=== PATIENT | female | born 1960 | race Caucasian/White ===

== ENCOUNTER → 2018-11-11 | Outpatient (CLI) | payer MEDICARE, OTHER ==
[~2018-11-11] MED LIST: AMIT50 PO; AMOX500; AMYTRIPTILINE; Amitriptyline H50 MG PO; BELPHEER PO; CARI350; CARI350 PO; CHLO100 PO; DIPATR PO; DIPH25; DULO30; DULO60 PO; GABA300 PO; HYDACE5 PO; IBUP200 PO; LEVSOD100; LEVSOD100 PO; LEVSOD125; LEVSOD125 PO; LOPE2C PO; LOVA40 PO; Lisinopril2.5 MG PO; MELO7.5 PO; METCAR750 PO; METF850 PO; METR500 PO; MOTRIN; NAPR500ERA; OXYACE5T PO; PROACE100; RESTORIL; SOMA; TEMA30; TEMA30 PO; TRAM50 PO
[2018-11-13 14:09] LABS: HPV 16 Negative (Negative); HPV 18 Negative (Negative); HPV OTHER HR TYPES Negative (Negative)
== END | disposition home or self-care (01) ==
LOC: LAB SHORT 13:07 → LAB 13:07
PROVIDERS: Nurse Practitioner Family
DX: Z12.4 Encounter for screening for malignant neoplasm of cervix (principal); Z11.51 Encounter for screening for human papillomavirus (HPV)
CPT/HCPCS: 87624; G0123

== ENCOUNTER → 2019-07-31 | Outpatient (CLI) | payer MEDICARE, OTHER ==
[2019-08-01 16:45] LABS: Adenovirus F 40/41 Not Detected (NOT DETECT); Astrovirus Not Detected (NOT DETECT); Campylobacter Sp Not Detected (NOT DETECT); Cryptosporidium Not Detected (NOT DETECT); Cyclospora Cayetanensis Not Detected (NOT DETECT); E. Coli O157 Not Detected (NOT DETECT); Entamoeba Histolytica Not Detected (NOT DETECT); Enteroaggregative E. coli-EAEC Not Detected (NOT DETECT); Enteropathogenic E. coli-EPEC Not Detected (NOT DETECT); Enterotoxigenic E. coli-ETEC Not Detected (NOT DETECT); Giardia Lamblia Not Detected (NOT DETECT); Norovirus GI/GII Not Detected (NOT DETECT); Plesiomonas Shigelloides Not Detected (NOT DETECT); Rotavirus A Not Detected (NOT DETECT); Salmonella Sp Not Detected (NOT DETECT); Sapovirus Not Detected (NOT DETECT); Shiga Toxin-prod E. coli-STEC Not Detected (NOT DETECT); Shigella/Enteroin E. coli-EIEC Not Detected (NOT DETECT); Vibrio Cholerae Not Detected (NOT DETECT); Vibrio Sp Not Detected (NOT DETECT); Yersinia Enterocolitica Not Detected (NOT DETECT)
== END | disposition home or self-care (01) ==
LOC: LAB 20:00 → LAB SHORT 20:00 → LAB FUT 07-21 15:25
PROVIDERS: Internal Medicine Gastroenterology
DX: R19.7 Diarrhea, unspecified (principal); R10.13 Epigastric pain
CPT/HCPCS: 0097U

== ENCOUNTER → 2020-06-08 | Outpatient (CLI) | payer MEDICARE, OTHER ==
[2020-06-08 18:58] LABS: Adenovirus F 40/41 Not Detected (NOT DETECT); Astrovirus Not Detected (NOT DETECT); Campylobacter Sp Not Detected (NOT DETECT); Cryptosporidium Not Detected (NOT DETECT); Cyclospora Cayetanensis Not Detected (NOT DETECT); E. Coli O157 Not Detected (NOT DETECT); Entamoeba Histolytica Not Detected (NOT DETECT); Enteroaggregative E. coli-EAEC Not Detected (NOT DETECT); Enteropathogenic E. coli-EPEC Not Detected (NOT DETECT); Enterotoxigenic E. coli-ETEC Not Detected (NOT DETECT); Giardia Lamblia Not Detected (NOT DETECT); Norovirus GI/GII Not Detected (NOT DETECT); Plesiomonas Shigelloides Not Detected (NOT DETECT); Rotavirus A Not Detected (NOT DETECT); Salmonella Sp Not Detected (NOT DETECT); Sapovirus Not Detected (NOT DETECT); Shiga Toxin-prod E. coli-STEC Not Detected (NOT DETECT); Shigella/Enteroin E. coli-EIEC Not Detected (NOT DETECT); Vibrio Cholerae Not Detected (NOT DETECT); Vibrio Sp Not Detected (NOT DETECT); Yersinia Enterocolitica Not Detected (NOT DETECT)
== END | disposition home or self-care (01) ==
LOC: LAB SHORT 11:00 → LAB 11:00
PROVIDERS: Internal Medicine Gastroenterology
DX: R19.7 Diarrhea, unspecified (principal)
CPT/HCPCS: 0097U

== ENCOUNTER → 2021-03-27 | Outpatient (CLI) | payer MEDICARE, OTHER ==
[2021-03-27 16:30] LABS: BASOPHILS ABSOLUTE AUTO 0.06 K/mm3 (0.00-0.23); BASOPHILS PERCENT AUTO 1 % (0-2); EOSINOPHILS ABSOLUTE AUTO 0.45 K/mm3 (0.00-0.68); EOSINOPHILS PERCENT AUTO 6 % (0-6); Hematocrit 32.8 % (33.0-51.0); Hemoglobin 10.8 g/dL (11.5-16.0); IMMATURE GRAN ABSOLUTE AUTO 0.04 K/mm3 (0.00-0.10); IMMATURE GRAN PERCENT AUTO 1 % (0-1); LYMPHOCYTES ABSOLUTE AUTO 1.72 K/mm3 (0.84-5.20); LYMPHOCYTES PERCENT AUTO 22 % (21-46); MONOCYTES PERCENT AUTO 8 % (4-13); Mean Corpuscular HGB Conc 32.9 g/dL (31.5-36.5); Mean Corpuscular Volume 88 fL (80-100); Mean Platelet Volume 9.5 fL (9.1-12.4); NEUTROPHILS ABSOLUTE AUTO 5.11 K/mm3 (1.96-9.15); NEUTROPHILS PERCENT AUTO 64 % (41-73); Platelet Count 335 K/mm3 (150-400); RDW Coefficient Variation 14.1 % (11.7-14.2); RDW Standard Deviation 45.4 fL (35.1-46.3); Red Blood Cell Count 3.72 M/mm3 (3.80-5.20); White Blood Cell Count 7.98 K/mm3 (4.00-11.30)
[2021-03-27 16:39] LABS: Alanine Aminotransfer (ALT/SGP 19 U/L (12-78); Albumin, Blood 2.6 g/dL (3.4-5.0); Albumin/Globulin Ratio 0.7 (0.8-1.8); Alk Phos 70 U/L (40-126); Anion Gap 9 mmol/L (6-16); Aspartate Aminotrans (AST/SGOT 18 U/L (12-37); Bilirubin, Total 0.5 mg/dL (0.1-1.0); Blood Urea Nitrogen 8 mg/dL (8-24); Bun/Creatinine Ratio 11.6 (12.0-20.0); CO2, Blood 27 mmol/L (21-32); Calcium, Blood 8.3 mg/dL (8.5-10.1); Chloride, Blood 104 mmol/L (98-108); Creatinine, Blood 0.69 mg/dL (0.40-1.00); Globulin, Blood 3.7 g/dL (2.2-4.0); Glomerular Filtration Rate >60 (60-); Glucose, Blood 98 mg/dL (70-99); Potassium, Blood 3.3 mmol/L (3.5-5.5); Sodium, Blood 140 mmol/L (136-145); Total Protein, Blood 6.3 g/dL (6.4-8.2)
== END | disposition home or self-care (01) ==
LOC: LAB SHORT 16:23 → PLD 16:23
PROVIDERS: General Practice
DX: R50.9 Fever, unspecified (principal)
CPT/HCPCS: 80053; 85025

== ENCOUNTER → 2021-09-15 | Outpatient (CLI) | payer OTHER ==
[~2021-09-15] MED LIST changes: +ATOR40TA PO; +CHLORZOXAZONE375 MG PO; +Desyrel150 MG PO; +Flonase 0.05% N16 GM; +LEVSOD112 PO; -LEVSOD125 PO; +NABU500 PO; +PROAIR DIGIHAL90 MCG INH; +TIZANIDINE HCL2 M3 PO
[2021-09-15 21:10] LABS: Campylobacter Sp Not Detected (NOT DETECT); Enteroaggregative E. coli-EAEC Not Detected (NOT DETECT); Plesiomonas Shigelloides Not Detected (NOT DETECT); Salmonella Sp Not Detected (NOT DETECT); Vibrio Cholerae Not Detected (NOT DETECT); Vibrio Sp Not Detected (NOT DETECT); Yersinia Enterocolitica Not Detected (NOT DETECT)
[2021-09-15 21:12] LABS: Adenovirus F 40/41 Not Detected (NOT DETECT); Astrovirus Not Detected (NOT DETECT); Cryptosporidium Not Detected (NOT DETECT); Cyclospora Cayetanensis Not Detected (NOT DETECT); E. Coli O157 Not Detected (NOT DETECT); Entamoeba Histolytica Not Detected (NOT DETECT); Enteropathogenic E. coli-EPEC Not Detected (NOT DETECT); Enterotoxigenic E. coli-ETEC Not Detected (NOT DETECT); Giardia Lamblia Not Detected (NOT DETECT); Norovirus GI/GII Not Detected (NOT DETECT); Rotavirus A Not Detected (NOT DETECT); Sapovirus Not Detected (NOT DETECT); Shiga Toxin-prod E. coli-STEC Not Detected (NOT DETECT); Shigella/Enteroin E. coli-EIEC Not Detected (NOT DETECT)
== END | disposition home or self-care (01) ==
LOC: LAB SHORT 13:30
PROVIDERS: Internal Medicine Gastroenterology
DX: R19.7 Diarrhea, unspecified (principal)
CPT/HCPCS: 0097U

== ENCOUNTER 2021-10-03 10:26 | Day surgery (SDC) | payer OTHER ==
[~2021-10-03] VITALS: Ht 162.6 cm; Wt 78.7 kg
--- NOTE | 2021-10-03 11:39 | NUR ---
PT AMBULATES TO [facility] SLOW GAIT. Patient confirms NPO status and agrees with scheduled surgery. History, Chart, Medications and Allergies reviewed before start of procedure. Lungs clear T/O to Auscultation. Patient reports completing Chlorhexadine shower X2 prior to admission to hospital. + VOID. CHEM BG 98. DENTURES AND GLASSES TO PACU.
--- NOTE | 2021-10-03 18:32 | NUR ---
RECEIVED PT. FROM PACU VIA THE BED, ACCOMPANIED BY PHYSIOLOGICAL CHEMIST, AOX3, LEFT KNEE IMMOBILIZED WITH GELY WRAP ON. TRANEXAMIC ACID IV 2ND DOSE GIVEN IN THE UNIT WITHOUT PROBLEMS. PT. TRIED VOIDING ON BEDSIDE COMMODE, VOIDED 200 ML, BLADDER SCAN DONE WITH 692 ML, STRAIGHT CATH DONE WITH 700 ML OF CLEAR YELLOW URINE, PT. TOLERATED WELL. PT. DENIES PAIN AT THIS TIME, STATED " JUST UNCOMFORTABLE" RELATED TO DIFFICULTY URINATING. DIMINISHED BREATH SOUNDS AT THE BASES NOTED. COOLING MEASURES APPLIED TO LEFT KNEE, PT. TOLERATED WELL.
[2021-10-04 05:05] LABS: BASOPHILS ABSOLUTE AUTO 0.02 K/mm3 (0.00-0.23); BASOPHILS PERCENT AUTO 0 % (0-2); EOSINOPHILS ABSOLUTE AUTO 0.01 K/mm3 (0.00-0.68); EOSINOPHILS PERCENT AUTO 0 % (0-6); Hematocrit 29.5 % (33.0-51.0); Hemoglobin 9.7 g/dL (11.5-16.0); IMMATURE GRAN ABSOLUTE AUTO 0.06 K/mm3 (0.00-0.10); IMMATURE GRAN PERCENT AUTO 1 % (0-1); LYMPHOCYTES ABSOLUTE AUTO 1.57 K/mm3 (0.84-5.20); LYMPHOCYTES PERCENT AUTO 15 % (21-46); MONOCYTES ABSOLUTE AUTO 0.82 K/mm3 (0.16-1.47); MONOCYTES PERCENT AUTO 8 % (4-13); Mean Corpuscular HGB 29.4 pg (26.0-34.0); Mean Corpuscular HGB Conc 32.9 g/dL (31.5-36.5); Mean Corpuscular Volume 89 fL (80-100); Mean Platelet Volume 10.4 fL (9.1-12.4); NEUTROPHILS ABSOLUTE AUTO 8.24 K/mm3 (1.96-9.15); NEUTROPHILS PERCENT AUTO 77 % (41-73); Platelet Count 240 K/mm3 (150-400); RDW Coefficient Variation 14.6 % (11.7-14.2); RDW Standard Deviation 47.2 fL (35.1-46.3); White Blood Cell Count 10.72 K/mm3 (4.00-11.30)
--- NOTE | 2021-10-04 05:12 | NUR ---
BINDER ROLLER SUMMARY PT IS POST-OP DAY 1 FROM ELECTIVE LEFT TKA. PT IS FULL CODE. DRESSING C/D/I. PT HAS BEEN AMBULATING IN THE ROOM WITH WALKER AND GAIT BELT TO THE COMMODE. SHE HAS HAD URINARY RETENTION WHEN VOIDING AND STRAIGHT CATH DONE X1. AWAITING AM BLADDER SCAN POST VOID. PT TOLERATING PO INTAKE WELL AND FLUIDS CHANGED TO TKO AT THIS TIME. PT IS ALERT AND ORIENTED. PAIN MANAGED WELL WITH ORAL ROXICODONE. PT ON 2 LITERS OF OXYGEN DUE TO SATTING AT 92% ON RA AND RECEIVING NARCOTICS. NO OTHER CONCERNS THIS SHIFT.
[2021-10-04 05:58] LABS: Anion Gap 7 mmol/L (6-16); Blood Urea Nitrogen 10 mg/dL (8-24); Bun/Creatinine Ratio 19.9 (12.0-20.0); CO2, Blood 27 mmol/L (21-32); Calcium, Blood 8.2 mg/dL (8.5-10.1); Chloride, Blood 107 mmol/L (98-108); Glomerular Filtration Rate >60 (60-); Glucose, Blood 110 mg/dL (70-99); Magnesium, Blood 1.6 mg/dL (1.6-2.4); Potassium, Blood 4.5 mmol/L (3.5-5.5); Sodium, Blood 141 mmol/L (136-145)
[2021-10-04] MEDS ORDERED: CLIN150 PO (13:03)
[2021-10-04] MEDS ORDERED: ENOX40I SC (13:06)
[2021-10-04] MEDS ORDERED: OXAYDO5 M1 PO (13:07)
[2021-10-04] MEDS ORDERED: PROM25 PO (13:07)
--- NOTE | 2021-10-04 15:29 | NUR ---
DISCHARGED DC'D IV, CATHETER INTACT. REVIEWED DC INSTRUCTIONS W/PT AND DAUGHTER; VERBALIZED UNDERSTANDING. LEFT UNIT IN WC W/POSSESSIONS, DC PAPERWORK, POLAR PACK IN HAND ACCOMPANIED BY DAUGHTER AND FAMILY MEMBER.
== END 2021-10-04 15:26 | disposition home or self-care (01) ==
LOC: ORSCMMR 10:26 → SURS 17:34 → ORSCMMR 10-04 15:26
PROVIDERS: Orthopaedic Surgery
PROC: 8E0YXBZ Computer Assisted Procedure of Lower Extremity (ICD-10-PCS; principal; 2021-10-03 12:30)
PROC: 0SRD0J9 Replacement of Left Knee Joint with Synthetic Substitute, Cemented, Open Approach (ICD-10-PCS; principal; 2021-10-03 12:30)
DX: M17.12 Unilateral primary osteoarthritis, left knee (principal); E03.9 Hypothyroidism, unspecified; F32.A Depression, unspecified; E11.9 Type 2 diabetes mellitus without complications; J45.909 Unspecified asthma, uncomplicated; Z79.84 Long term (current) use of oral hypoglycemic drugs; Z79.899 Other long term (current) drug therapy
CPT/HCPCS: 36415; 73560-LT; 80048; 82947; 83735; 85025; 97110; 97110-CQ; 97116; 97116-CQ; 97162; 97530-CQ; A9270; C1713; C1776; J0171; J0735; J1100; J1170; J1650; J1885; J2250; J2370; J2405; J2704; J2795; J3010; J3370; J7120

== ENCOUNTER → 2023-09-20 | Outpatient (CLI) | payer OTHER ==
[~2023-09-20] MED LIST changes: +CLIN150 PO; +ENOX40I SC; +OXAYDO5 M1 PO; +PROM25 PO
[2023-09-20 15:11] LABS: Source, Urine Clean Catch
[2023-09-20 19:08] LABS: Bilirubin, Urine Neg (Neg); Blood, Urine 1+ (Neg); Color, Urine Yellow (P-Yellow); Glucose Qualitative, Urine Neg (Neg); Ketones, Urine Neg (Neg); Leukocyte Esterase, Urine Neg (Neg); Nitrite, Urine Neg (Neg); Protein, Urine Neg (Neg); Urobilinogen, Urine NORM (Normal)
[2023-09-20 20:16] LABS: Appearance, Urine Hazy (Clear); Red Blood Cells, Urine 0-2 /hpf (0-2)
[2023-09-20 20:18] LABS: Amorphous Light (0-Heavy); Bacteria Many /hpf; Squamous Epithelial Cells Mod /hpf (Few)
== END ==
LOC: LAB 15:08 → LAB SHORT 15:08
PROVIDERS: Physician Assistant
DX: R31.9 Hematuria, unspecified (principal)
CPT/HCPCS: 81001; 87086

== ENCOUNTER 2023-09-30 19:18 | Emergency (ER) | payer OTHER ==
[~2023-09-30] VITALS: Ht 162.6 cm; Wt 73.0 kg
[2023-09-30 19:35] VITALS: BP 143/81
[2023-09-30 19:55] LABS: Source, Urine Clean Catch
[2023-09-30 20:02] LABS: Bilirubin, Urine Neg (Neg); Leukocyte Esterase, Urine 1+ (Neg); Nitrite, Urine Neg (Neg)
[2023-09-30 20:10] LABS: Appearance, Urine Clear (Clear); Color, Urine Yellow (P-Yellow)
[2023-09-30 20:13] LABS: Blood, Urine 2+ (Neg)
[2023-09-30 20:14] LABS: Glucose Qualitative, Urine 1+ (Neg); Ketones, Urine Neg (Neg); Protein, Urine 1+ (Neg); Urobilinogen, Urine NORM (Normal)
[2023-09-30 20:15] LABS: Bacteria Few /hpf; Specific Gravity, Urine 1.015 (1.003-1.022); Squamous Epithelial Cells Mod /hpf (Few); White Blood Cells, Urine 0-2 /hpf (0-5)
== END 2023-09-30 21:47 | disposition home or self-care (01) ==
LOC: ER 19:18
PROVIDERS: Student in an Organized Health Care Education/Training Program
DX: R31.9 Hematuria, unspecified (principal); E11.9 Type 2 diabetes mellitus without complications; E78.00 Pure hypercholesterolemia, unspecified; Z79.84 Long term (current) use of oral hypoglycemic drugs; Z79.899 Other long term (current) drug therapy; Z88.1 Allergy status to other antibiotic agents; Z88.2 Allergy status to sulfonamides
CPT/HCPCS: 76770; 81001; 99284-25

== ENCOUNTER 2024-04-02 20:16 | Emergency (ER) | payer OTHER ==
[~2024-04-02] VITALS: Ht 162.6 cm; Wt 74.8 kg
[2024-04-02 20:41] LABS: BASOPHILS ABSOLUTE AUTO 0.07 K/mm3 (0.00-0.23); BASOPHILS PERCENT AUTO 1 % (0-2); EOSINOPHILS ABSOLUTE AUTO 0.27 K/mm3 (0.00-0.68); EOSINOPHILS PERCENT AUTO 3 % (0-6); Hemoglobin 12.5 g/dL (11.5-16.0); IMMATURE GRAN ABSOLUTE AUTO 0.02 K/mm3 (0.00-0.10); IMMATURE GRAN PERCENT AUTO 0 % (0-1); LYMPHOCYTES ABSOLUTE AUTO 3.43 K/mm3 (0.84-5.20); LYMPHOCYTES PERCENT AUTO 40 % (21-46); MONOCYTES ABSOLUTE AUTO 0.54 K/mm3 (0.16-1.47); MONOCYTES PERCENT AUTO 6 % (4-13); Mean Corpuscular HGB 29.3 pg (26.0-34.0); Mean Corpuscular HGB Conc 32.9 g/dL (31.5-36.5); Mean Corpuscular Volume 89 fL (80-100); Mean Platelet Volume 10.2 fL (9.1-12.4); NEUTROPHILS ABSOLUTE AUTO 4.28 K/mm3 (1.96-9.15); NEUTROPHILS PERCENT AUTO 50 % (41-73); Platelet Count 288 K/mm3 (150-400); RDW Coefficient Variation 14.1 % (11.7-14.2); RDW Standard Deviation 46.2 fL (35.1-46.3); Red Blood Cell Count 4.26 M/mm3 (3.80-5.20); White Blood Cell Count 8.61 K/mm3 (4.00-11.30)
[2024-04-02 21:02] LABS: Albumin, Blood 3.2 g/dL (3.4-5.0); Albumin/Globulin Ratio 1.1 (0.8-1.8); Bilirubin, Total 0.4 mg/dL (0.1-1.0); Bun/Creatinine Ratio 17.5 (12.0-20.0); Calcium, Blood 8.5 mg/dL (8.5-10.1); Creatinine, Blood 0.4 mg/dL (0.40-1.00); Total Protein, Blood 6.2 g/dL (6.4-8.2)
[2024-04-02 22:20] LABS: Source, Urine Clean Catch
[2024-04-02 22:25] LABS: Appearance, Urine Clear (Clear); Bilirubin, Urine Neg (Neg); Blood, Urine 2+ (Neg); Glucose Qualitative, Urine Neg (Neg); Ketones, Urine Neg (Neg); Leukocyte Esterase, Urine Neg (Neg); Nitrite, Urine Neg (Neg); Protein, Urine Neg (Neg); Urobilinogen, Urine NORM (Normal)
[2024-04-02 22:39] LABS: Bacteria Rare /hpf; Color, Urine Pale Yellow (P-Yellow); Red Blood Cells, Urine 0-2 /hpf (0-2); Squamous Epithelial Cells Few /hpf (Few); White Blood Cells, Urine 0-2 /hpf (0-5)
[2024-04-02 23:08] VITALS: BP 152/75
[2024-04-02] MEDS ORDERED: MESA250ER PO (23:24)
[2024-04-03] MEDS ORDERED: PHENA200 PO (00:16)
== END 2024-04-03 00:31 | disposition home or self-care (01) ==
LOC: ER 20:16
PROVIDERS: Emergency Medicine
DX: R31.9 Hematuria, unspecified (principal); R10.2 Pelvic and perineal pain; Z79.890 Hormone replacement therapy; Z79.899 Other long term (current) drug therapy; Z79.84 Long term (current) use of oral hypoglycemic drugs
CPT/HCPCS: 80053; 81001; 84484; 85025; 93005; 93010; 99283-25; A9270

== ENCOUNTER → 2024-07-24 | Outpatient (CLI) | payer OTHER ==
[~2024-07-24] MED LIST changes: +MESA250ER PO; +PHENA200 PO
[2024-08-06 07:28] LABS: HPV HIGH RISK BY TMA Not Detected; HPV SOURCE Cervical
== END | disposition home or self-care (01) ==
LOC: LAB SHORT 18:31 → LAB 18:31
PROVIDERS: Nurse Practitioner Family
DX: Z01.419 Encounter for gynecological examination (general) (routine) without abnormal findings (principal)
CPT/HCPCS: 87624; G0123

== ENCOUNTER → 2024-09-18 | Outpatient (CLI) | payer OTHER ==
[2024-09-18 17:21] LABS: Adenovirus F 40/41 Not Detected (NOT DETECT); Astrovirus Not Detected (NOT DETECT); Campylobacter Sp Not Detected (NOT DETECT); Cryptosporidium Not Detected (NOT DETECT); Cyclospora Cayetanensis Not Detected (NOT DETECT); E. Coli O157 Not Detected (NOT DETECT); Entamoeba Histolytica Not Detected (NOT DETECT); Enteroaggregative E. coli-EAEC Not Detected (NOT DETECT); Enteropathogenic E. coli-EPEC Not Detected (NOT DETECT); Enterotoxigenic E. coli-ETEC Not Detected (NOT DETECT); Giardia Lamblia Not Detected (NOT DETECT); Norovirus GI/GII Not Detected (NOT DETECT); Plesiomonas Shigelloides Not Detected (NOT DETECT); Rotavirus A Not Detected (NOT DETECT); Salmonella Sp Not Detected (NOT DETECT); Sapovirus Not Detected (NOT DETECT); Shiga Toxin-prod E. coli-STEC Not Detected (NOT DETECT); Shigella/Enteroin E. coli-EIEC Not Detected (NOT DETECT); Vibrio Cholerae Not Detected (NOT DETECT); Vibrio Sp Not Detected (NOT DETECT); Yersinia Enterocolitica Not Detected (NOT DETECT)
== END | disposition home or self-care (01) ==
LOC: LAB SHORT 14:44 → LAB 14:44
PROVIDERS: Nurse Practitioner
DX: R19.7 Diarrhea, unspecified (principal)
CPT/HCPCS: 87507

== ENCOUNTER → 2025-05-06 | Outpatient (CLI) | payer OTHER ==
[2025-05-06 19:31] LABS: Hematocrit 38.8 % (33.0-51.0); Hemoglobin 13.0 g/dL (11.5-16.0); Mean Corpuscular HGB Conc 33.5 g/dL (31.5-36.5); Mean Corpuscular Volume 88 fL (80-100); NRBC ABSOLUTE 0.00 K/mm3 (0.00-0.02); NRBC Auto 0.0 /100 WBC (0.0-0.2); Platelet Count 313 K/mm3 (150-400); RDW Coefficient Variation 15.4 % (11.7-14.2); RDW Standard Deviation 49.9 fL (35.1-46.3)
[2025-05-06 19:52] LABS: BASOPHILS ABSOLUTE MAN 0.00 K/mm3 (0.00-0.23); BASOPHILS PERCENT MAN 0 % (0-2); EOSINOPHILS ABSOLUTE MAN 0.08 K/mm3 (0.00-0.68); EOSINOPHILS PERCENT MAN 1 % (0-6); LYMPHOCYTES ABSOLUTE MAN 2.57 K/mm3 (0.84-5.20); LYMPHOCYTES PERCENT MAN 29 % (21-46); MONOCYTES ABSOLUTE MAN 0.71 K/mm3 (0.16-1.47); MONOCYTES PERCENT MAN 8 % (4-13); NEUTROPHILS ABSOLUTE MAN 5.50 K/mm3 (1.96-9.15); SEG NEUTROPHILS PERCENT MAN 62 % (41-73)
[2025-05-06 20:32] LABS: Alanine Aminotransfer (ALT/SGP 30.0 U/L (12-78); Albumin, Blood 3.8 g/dL (3.4-5.0); Albumin/Globulin Ratio 1.1 (0.8-1.8); Anion Gap 8.0 mmol/L (3-11); Aspartate Aminotrans (AST/SGOT 21.0 U/L (12-37); Bilirubin, Total 0.6 mg/dL (0.1-1.0); Blood Urea Nitrogen 7.0 mg/dL (8-24); CO2, Blood 27.0 mmol/L (21-32); Calcium, Blood 9.2 mg/dL (8.5-10.1); Chloride, Blood 106.0 mmol/L (98-108); Creatinine, Blood 0.62 mg/dL (0.40-1.00); Globulin, Blood 3.6 g/dL (2.2-4.0); Glucose, Blood 96.0 mg/dL (70-99); Potassium, Blood 3.8 mmol/L (3.5-5.5); Sodium, Blood 137.0 mmol/L (136-145); Total Protein, Blood 7.4 g/dL (6.4-8.2)
== END | disposition home or self-care (01) ==
LOC: LAB SHORT 19:22 → LAB 19:22
PROVIDERS: Nurse Practitioner
DX: R17 Unspecified jaundice (principal)
CPT/HCPCS: 80053; 85007; 85027